=== PATIENT | female | born 1960 | race Caucasian/White ===

== ENCOUNTER → 2017-02-17 | Outpatient (CLI) | payer OTHER ==
[~2017-02-17] MED LIST: ALBUAER2 INH; AMPH10TA2 PO; EFIN1SOL TOP; FLUO0.05 TOP; LISI5TAB3 PO; MRP15 PO; MULT-506 PO; PANT40TA PO
== END | disposition home or self-care (01) ==
LOC: C.LABSPEC 16:38
PROVIDERS: ATTEND Dermatology
DX: B35.3 Tinea pedis (principal)

== ENCOUNTER 2024-08-15 08:31 | Inpatient (IN) ==
--- NOTE | 2024-08-10 11:57 | Anesthesiology Consultation ---
Date of Service August 10, 2024 Assessment & Plan (1) Encounter for pre-operative examination: Chart Review Chart Review: Acceptable Risk for Surgery History Surgery Operation Date: 08/15/24 12:55 Proposed Procedures p L3-L4 Decompression and Fusion Hardware Removal L4-L5 Spinal Cord Monitoring - Tylor Chen DO Height/Weight Height: 5 ft 3 in Weight: 81.193 kg Allergies Allergy/AdvReac Type Severity Reaction Status Date / Time adhesive Allergy Intermediate SKIN Verified 08/10/24 09:48 BLISTERS Penicillins Allergy Intermediate HIVES Verified 08/10/24 09:48 pain medication AdvReac Mild itching/not Uncoded 08/10/24 09:48 sure name of med Medications Home Medications Medication Instructions Recorded Confirmed Last Taken lisinopril 5 mg tablet 5 mg PO QAM 01/28/20 08/10/24 08/07/24 pantoprazole 40 mg tablet,delayed 40 mg PO QAM 01/28/20 08/10/24 08/06/24 release calcium-vitamin D3-vitamin K 500 1 tab PO QAM 04/20/23 08/10/24 08/06/24 mg-100 unit-40 mcg chewable tablet multivitamin 1 tab PO QAM 04/20/23 08/10/24 08/06/24 ascorbic acid (vitamin C) 500 mg 500 mg PO QAM 12/18/23 08/10/24 08/06/24 tablet (Vitamin C) evolocumab 140 mg/mL subcutaneous 140 mg subcut UD 12/18/23 08/10/24 1 Week Ago pen injector (Addis Love) ~07/31/24 pantoprazole 20 mg tablet,delayed 20 mg PO QAM 08/07/24 08/10/24 Unknown release zoledronic acid 5 mg/100 mL in 1 ea IV YEARLY 08/10/24 08/10/24 Unknown mannitol 5 %-water intravenous piggybck (Reclast) Past Medical History Medical History Degenerative disc disease Arthritis Prediabetes "borderline" Asthma "weather or sport induced" no inhaler Age related osteoporosis Hyperlipidemia Hiatal hernia abdominal hernia GERD (gastroesophageal reflux disease) History of anxiety History of Holter monitoring 2019, "when covid started pt developed fast heart rate, put on monitor, found to be anxiety." Hypertension followed by [place] [facility] History of COVID-19 03/2022, home test, not hosp; severe cough, sore throat, fever>resolved completely after 1 month. H/O abnormal cervical Papanicolaou smear [facility] records reviewed from [id number] - note made of "H/o abn pap" [id number] cotest neg/neg H/O actinic keratosis face Lumbar stenosis with neurogenic claudication (11/15/14) Past Family History Family History Mother Osteoporosis Lung cancer Father Lung cancer Grandmother Heart disease Grandmother (Paternal) Heart disease Other Kidney disease No family history of adverse response to anesthesia No pertinent family history Past Surgical History Surgical History History of hip surgery left/right History of lumbar fusion total 4 back surgeries (fused S1-S4) History of tooth extraction Nausea after anesthesia History of endoscopy History of dilatation and curettage History of bunionectomy of both great toes Hx of elbow surgery left Hx of hernia repair Hx of section x2 Hx of colonoscopy Hx of tonsillectomy H/O laparoscopy H/O shoulder surgery right/left Social History Smoking Status: Never smoker Do You Dip or Chew Tobacco: No Hx Alcohol Use: Yes alcohol intake frequency: holidays/special occasions only substance use type: does not use Testing Laboratory Results Laboratory Tests 08/07/24 09:49 Hgb 14.3 Plt Count 277 Potassium 4.3 Creatinine 0.81 Electrocardiogram Date: 06/28/24 Findings: + NSR @ (73) Echocardiogram Date: 05/23/20 EF: 60-65% LV Function: normal Valvular Disease: + no significant valvular disease
[~2024-08-15 08:31] MED LIST changes: -ALBUAER2 INH; -AMPH10TA2 PO; +DEXAMETHASONE SOD INJ 4 MG/ML VIAL ONE; -EFIN1SOL TOP; -FLUO0.05 TOP; +GLYCOPYRROLATE 0.2 MG/ML VIAL ONE; -LISI5TAB3 PO; +MIDAZOLAM HCL 1 MG/ML 2ML VIAL ONE; -MRP15 PO; -MULT-506 PO; +ONDANSETRON INJ 2 MG/ML 2 ML VIAL ONE; -PANT40TA PO; +PROPOFOL IV EMULSION 10 MG/ML 20 ML VIAL IV ONE; +ROCURONIUM BROMIDE 10 MG/ML 5 ML VIAL IV ONE; +SUGAMMADEX SODIUM 200 MG/2 ML VIAL IV ONE; +fentaNYL citrate PF 100 MCG/2 ML VIAL ONE
--- OUTSIDE RECORDS SUMMARY | 2024-08-15 09:03 | External Medical Summary | Summary of Care ---
Author Name Unknown Organization [facility] Address [address] [place] [address] Phone [phone] Care Team Providers Care Product Development Specialist Name Role Phone Cristiano Aden MD Primary Care Provider + Reason for Visit * Reason Onset Date Comments FYI 08/10/2024 Encounter Details Date Type Department Care Team (Late st Contact Info) Description 08/10/2024 Telephone Family Practice [facility] [address] [facility] [place] [address] Cristiano Aden MD [address] [facility] [place] [address] FYI Allergies Active Allergy Reactions Criticality Noted Date Comments Atorvastatin 09/27/2018 Myalgia Rosuvastatin 08/02/2020 myalgias Latex Other (Please comment) 09/22/2018 blistering documented as of this encounter (statuses as of 08/10/2024) Medications Medication Sig Dispensed Refills Start Date End Date Status MULTIVITAMIN/MULTIM INERAL TABS OR 1 TABLET DAILY 30 0 08/22/2004 Active FLONASE 50 MCG/ACT NA SUSPIndications:Chr onic sinusitis,Allergic rhinitis Two sprays each nostril once daily 1 Bottle 5 05/01/2014 Active Ascorbic Acid (VITAMIN C) 100 MG chewable tablet Take 3 Tablets by mouth in the morning. Active Cholecalciferol (VITAMIN D3) 10 MCG (400 UNIT) Capsule Take 2 Capsules by mouth in the morning. Active Caltrate 600+D3 Soft 600-800 MG-UNIT Oral Tablet Chewable (Calcium Carb-Cholecalcifero l) twice daily Active Pantoprazole Sodium 20 MG Oral Tablet Delayed Release (Protonix) Take 1 Tablet by mouth in the morning. 90 Tablet 3 03/31/2023 Active LORazepam 0.5 MG Oral Tablet (Ativan)Indications :OLGA LIDIA (generalized anxiety disorder) Take 1 Tablet by mouth every 8 hours as needed for Anxiety. 30 Tablet 08/13/2023 Active Repatha SureClick 140 MG/ML Subcutaneous Solution Auto-injector (evolocumab) Inject 140 mg (1 pen) under the skin every 14 days. Remove from refrigerator 30 minutes prior to injection. 2 mL 11 10/15/2023 Active Lisinopril 5 MG Oral Tablet (Prinivil)Indicatio ns:Essential hypertension with goal blood pressure less than 140/90 TAKE 1 TABLET BY MOUTH EVERY DAY 90 Tablet 05/16/2024 Active documented as of this encounter (statuses as of 08/10/2024) Active Problems Problem Noted Date Diagnosed Date History of 2019 novel coronavirus disease (COVID -19) 05/21/2022 Overview: March 2022 Age-related osteoporosis wit hout current pathological fracture 05/26/2021 OLGA LIDIA (generalized anxiety disorder) 11/02/2020 Attention deficit disorder (ADD) without hyperac tivity 07/26/2019 Eosinophilic esophagitis 09/24/2017 HTN, goal below 130/80 08/07/2016 Prediabetes 04/15/2016 Dyslipidemia 04/15/2016 Well adult exam 04/15/2016 Overview: Pronounced Sit-ti 10/21 PAYNE + reflux test. 06/19 PTH high [facility], normal calcium 06/18 EGD WNL, dilated. Biopsy reflux esophagitis.. Colon WNL fair prep minor 5y 2019 Zio +runs SVT 11/16 stress echo WNL. Gr I raymundo dys. 09/16 EGD WNL path pend. Try BID PPI 11/15 EGD-hiatal hernia. Improved. Dec to Qday PPI. Esophagitis present. 09/15 esophagitits, Hiatal hernia 07/2010 colonoscopy [facility]. Mild intermittent asthma without complication Overview: Per Asthma Taxonomy Gastroesophageal reflux disease with esophagitis 11/16/2008 Hiatal hernia documented as of this encounter (statuses as of 08/10/2024) Resolved Problems Problem Noted Date Diagnosed Date Resolved Date Acute sinusitis 05/31/2010 10/14/2011 Dermatophytosis of nail 04/05/200907/01 Disorder of skin or subcutaneous tissue 04/05/2009 07/26/2019 Menstruation, irregular 04/05/200907/01 Asthma, allergic 01/27/2008 05/27/2010 HTN, goal below 140/90 05/13/200707/27 HYPODERMIC NEEDLE 09/05/2005 08/17/2007 Contact with or exposure to other viral diseases(V01.79) 09/05/2005 08/17/2007 ADVANCE DIRECTIVE INFORMATION 05/06/2005 07/26/2019 Overview: No, Advance Directive brochure given to patient. Uterine endometriosis 2018 documented as of this encounter (statuses as of 08/10/2024) Immunizations Name Administration Dates Next Due COVID-19 mRNA, LNP-s, No Pre serve, 2-Dose Series (Pfizer) 09/09/2021,02/01/2021,01/06/2021 Pneumococcal Polysaccharide PPV23 (Pneumovax) 08/28/2011 Seasonal Influenza, PF, 6 M & above, IM , (FluLaval or Fluzone) 09/14/2023,10/06/2022,09/23/2021,09/21 Seasonal Influenza, Quadriva lent, No Preserve, IM 08/30/2020,08/07/2016,09/24/2015 Seasonal Influenza, Quadriva lent, No Preserve, Mdck 08/25/2019,09/21/2018 Seasonal Influenza, Trivalen t, (IIV3), with Preserv, (Fluzone) 10/03/2014,10/18/2013,08/16/2012,08/28,08/23/2009,09/26/2008 TDAP (age 10 and older)(Boostrix) 08/07/2016 TDAP, Age 7 and older, IM (Adacel) 02/17/2007 Zoster Vaccine Recombinant (Shingrix) 11/02/2020 ,07/23/2020 documented as of this encounter Social History Tobacco Use Types Packs/Day Years Used Date Smoking Tobacco: Never Smokeless Tobacco: Never Alcohol Use Standard Drinks/Week Comments Not Currently 0 (1 standard drink = 0.6 oz pure alcohol) extremely rare wine. due to reflux. PHQ-2 Answer Date Recorded PHQ Adult Total Score 0 05/22/2023 Hunger Vital Sign Answer Date Recorded Within the past 12 months, y ou worried that your food would run out before you got the money to buy more. Never true 05/22/20 23 Within the past 12 months, t he food you bought just didn't last and you didn't have money to get more. Never true 05/22/2023 Childcare Answer Date Recorded Do you feel overwhelmed with taking care of a child, family member or friend? No 05/22/2023 Does your family need help f inding childcare? (Household - for ages 0-17 years) Not on file 05/22/2023 Clothing Answer Date Recorded Have you been unable to get clothing when it was really needed? No 05/22/2023 Is your family able to get c lothes or diapers when needed? (Household - for ages 0-17 years) Not on file 05/22/2023 Personal Safety Answer Date Recorded Do you feel unsafe or have concerns for your saf ety? No 05/22/2023 Do you have concerns for you r family's safety? (Household - for ages 0-17 years) Not on file 05/22/2023 Utilities Answer Date Recorded Do you have trouble paying y our heating, water, or electric bill? No 05/22/2023 Is your family able to pay t he heat, water, or electric bill? (Household - for ages 0-17 years) Not on file 05/22/2023 Does your family have access to good internet? (Household - for ages 0-17 years) Not on file 05/22/2023 Employment Status Answer Date Recorded Are you unemployed or without regular income? No 05/22/2023 Does the household have a re gular source of income? (Household - for ages 0-17 years) Not on file 05/22/2023 Social Connections Answer Date Recorded How often do you feel lonely or isolated from th ose around you? Never 05/22/2023 Financial Resource Strain Answer Date R ecorded Do you have any trouble payi ng for your medications, or do you think you might in the future? No 05/22/2023 Does your family have troubl e paying for medicine? (Household - for ages 0-17 years) Not on file 05/22/2023 Transportation Needs Answer Date Record ed READ ONLY Do you have troubl e getting a ride to medical visits or work? Never True 05/22/2023 Does your family have a hard time getting a ride to doctors visits? (Household - for ages 0-17 years) Not on file 05/22/2023 Has lack of transportation k ept you from medical appointments, meetings, work, or from getting things needed for daily living? Check all that apply. (Adult - for ages 18 years and over) Not on file 05/22/2023 Do you (or your family) have trouble finding or paying for a ride (transportation)? (Household - for ages 0-17 years) Not on file 05/22/2023 Housing Stability Answer Date Recorded Do you currently live in a s helter or have no steady place to sleep at night? No 05/22/2023 READ ONLY Do you think you a re at risk of becoming homeless? No 05/22/2023 Does your family worry about paying for your home or becoming homeless? (Household - for ages 0-17 years) Not on file 0 05/22/2023 Are you homeless or worried that you might be in the future? (Adult - for ages 18 years and over) Not on file Are you (or your family) tramaine eless or worried that you might be in the future? (Household - for ages 0-17 years) Not on file Food Insecurity Answer Date Recorded Do you need food for this week? No 05/22/2023 Are you able to get enough f ood for your family? (Household - for ages 0-17 years) Not on file 05/22/2023 Does your family need food t his week? (Household - for ages 0-17 years) Not on file 05/22/2023 Do you always have enough fo od for your family? (Household - for ages 0-17 years) Not on file 05/22/2023 Sex and Gender Information Value Date Recorded Sex Assigned at Female 05/22/2023 9:16 AM EDT Gender Identity Female 05/22/2023 9:16 AM EDT Sexual Orientation Straight 05/22/2023 9: 16 AM EDT Job Start Date Occupation Industry Not on file Not on file Not on file documented as of this encounter Miscellaneous Notes * Telephone Encounter - Mikki Steve product sales engineer - 08/10/2024 2:56 PM EDT Patient calling request to speak to nurse regarding back surgery. Transferred to [facility] at office Thank you, Mikki Steve [employer] [facility] 08/10/2024,2:59 PM documented in this encounter Plan of Treatment Upcoming Encounters Date Type Department Care Team (Late st Contact Info) Description 11/21/2024 10:00 AM EST [address] [address] 12/12/2024 9:00 AM EST Imaging Radiology [facility] [address] [place] [address] 05/26/2025 9:40 AM EDT Office Visit Family [facility] [address] [place] [address] Cristiano Aden MD [address] [place] [address] Scheduled Procedures Name Priority Associated Diagnoses Date/Ti me COLONOSCOPY FLEXIBLE PROXIMA L DIAGNOSTIC Recall Encounter for screening colonoscopy Health Maintenance Due Date Last Done Comments HPV/Co-Test 1990 Cologuard 2005 Fecal Occult Blood Test 2005 Sigmoidoscopy 2005 Hepatitis B Vaccine (3 of 3 - 19+ 3-dose series) 03/05/2006 10/07/2005, 09/04/2005 Pneumococcal Vaccine: Pediatrics (0 to 5 Years) and At-Risk Patients (6 to 64 Years) (2 of 2 - PCV) 08/28/2012 08/28/2011 *SPIROMETRY ONCE FOR ASTHMA-ADULT 10/23/2022 Depression Screening 05/22/2024 05/22/2023 COVID-19 Vaccine (4 - 2022- season) 2024 09/09/2021, 02/01/2021, 01/06/2021 Influenza Vaccine (FLU shot) (#1) 2024 09/14/2023, 10/06/2022, 09/23/2021, Additional history exists DXA Scan 11/17/2024 11/17/2022, 10/30, 09/03/2015 Mammogram 12/09/2024 12/09/2023, 03/2023, 12/02/2021, Additional history exists GFR 05/05/2025 05/05/2024, 10/01, 05/18/2023, Additional history exists HbA1c 05/19/2025 05/19/2024, 04/30, 07/03/2022, Additional history exists Cervical Cancer Screening 06/17/2025 Pap Smear 06/17/2025 06/17/2022, 05/01, 01/12/2019, Additional history exists Colonoscopy 06/18/2025 06/18/2020, 05/31, 08/23/2010 Colorectal Cancer Screening 06/18/2025 Albumin/Creatinine Ratio 05/18/2026 05/18/2023 DTap/Tdap Vaccines (3 - Td or Tdap) 08/07/2026 08/07/2016, 02/17/2007 Lipid Panel 09/18/2028 09/18/2023, 04/30, 07/10/2022, Additional history exists RETIRED - COLONOSCOPY-EVERY 5 YRS AGES 18-100 Discontinued 06/18/2020, 06/18/2020, 08/23/2010 Zoster Vaccines Completed 11/02/2020, 07/23/2020 VITAMIN D LEVEL ONCE IN A LIFETIME-USE SMARTSET# [id number] Completed 05/05/2024, 07/14/2011 HPV (Gardasil) Vaccine Aged Out No lo nger eligible based on patient's age to complete this topic MENINGOCOCCAL (MENACTRA/MENVEO) Aged Out No longer eligible based on patient's age to complete this topic documented as of this encounter Medical Devices Not on filedocumented as of this encounter Care Teams Product Development Specialist Relationship Specialty Start Date End Date Cristiano Aden MD [address] [place] [id number] PCP - General Family Medicine 04/15/16 documented as of this encounter
[2024-08-15] MEDS: LR 15ML/HR IV SCH (09:12)
[2024-08-15] MEDS: LR 60ML/HR IV SCH (09:13)
[2024-08-15] MEDS: GABAPENTIN 600 MG DOSE PO SCH (09:16)
[2024-08-15] MEDS: ACETAMINOPHEN 500 MG TAB PO SCH (09:16)
[2024-08-15] MEDS: CeleBREX 200 MG CAP PO SCH (09:17)
--- NOTE | 2024-08-15 09:44 | History & Physical Bridge Note ---
Date of Service August 15, 2024 History & Physical Bridge Note I have examined the patient, reviewed the History & Physical and in the interval since the performance of the History & Physical I have noted the following changes of clinical significance: no changes noted
--- NOTE | 2024-08-15 09:45 | History & Physical Report ---
Date of Service August 15, 2024 Assessment & Plan (1) Neurogenic claudication due to lumbar spinal stenosis: Plan: Lumbar decompression and fusion L3-L4 with hardware removal L4-L5 History of Present Illness Chief Complaint: Back and bilateral leg pain Primary Care Provider: Cristiano Aden MD This is a 64-year-old female presents with chronic persistent back and leg pain after failing course of nonoperative care is here for surgical intervention. Allergies Allergy/AdvReac Type Severity Reaction Status Date / Time adhesive Allergy Intermediate SKIN Verified 08/15/24 08:50 BLISTERS Penicillins Allergy Intermediate HIVES Verified 08/15/24 08:50 pain medication AdvReac Mild itching/not Uncoded 08/15/24 08:50 sure name of med Home Medications Medication Instructions Recorded Confirmed Type lisinopril 5 mg tablet 5 mg PO QAM 01/28/20 08/15/24 History pantoprazole 40 mg tablet,delayed 40 mg PO QAM 01/28/20 08/15/24 History release calcium-vitamin D3-vitamin K 500 1 tab PO QAM 04/20/23 08/15/24 History mg-100 unit-40 mcg chewable tablet multivitamin 1 tab PO QAM 04/20/23 08/15/24 History ascorbic acid (vitamin C) 500 mg 500 mg PO QAM 12/18/23 08/15/24 History tablet (Vitamin C) evolocumab 140 mg/mL subcutaneous 140 mg subcut UD 12/18/23 08/15/24 History pen injector (Repatha SureClick) pantoprazole 20 mg tablet,delayed 20 mg PO QAM 08/07/24 08/15/24 History release zoledronic acid 5 mg/100 mL in 1 ea IV YEARLY 08/10/24 08/15/24 History mannitol 5 %-water intravenous piggybck (Reclast) acetaminophen 500 mg tablet 1,000 mg PO Q6H PRN Pain 08/15/24 08/15/24 History Past Med/Surg History Problem List (Updated 08/15/24 @ 09:44 by Tylor Chen DO) Neurogenic claudication due to lumbar spinal stenosis Lumbar radiculopathy (Acute) Bilateral plantar fasciitis Atherogenic dyslipidemia Benign essential hypertension Atypical chest pain History of bursectomy Tear of gluteus minimus tendon Osteoarthritis of left hip Prediabetes Atypical nevus (Acute) pt denies Medical History Degenerative disc disease Arthritis Prediabetes "borderline" Asthma "weather or sport induced" no inhaler Age related osteoporosis Hyperlipidemia Hiatal hernia abdominal hernia GERD (gastroesophageal reflux disease) History of anxiety History of Holter monitoring 2019, "when covid started pt developed fast heart rate, put on monitor, found to be anxiety." Hypertension followed by [place] [facility] History of COVID-19 03/2022, home test, not hosp; severe cough, sore throat, fever>resolved completely after 1 month. H/O abnormal cervical Papanicolaou smear [facility] records reviewed from [id number] - note made of "H/o abn pap" [id number] cotest neg/neg H/O actinic keratosis face Lumbar stenosis with neurogenic claudication (11/15/14) Surgical History History of hip surgery left/right History of lumbar fusion total 4 back surgeries (fused S1-S4) History of tooth extraction Nausea after anesthesia History of endoscopy History of dilatation and curettage History of bunionectomy of both great toes Hx of elbow surgery left Hx of hernia repair Hx of section x2 Hx of colonoscopy Hx of tonsillectomy H/O laparoscopy H/O shoulder surgery right/left Family History Mother Osteoporosis Lung cancer Father Lung cancer Grandmother Heart disease Grandmother (Paternal) Heart disease Other Kidney disease No family history of adverse response to anesthesia No pertinent family history Social History Smoking Status: Never smoker Second Hand Exposure: Yes (as a child); Do You Dip or Chew Tobacco: No; Hx Alcohol Use: Yes Preferred Language: Nepali Communication Ability: Effective Water Hydrant Installer Required: No Beliefs That Will Affect Care: None marital status: Current Living Situation: Spouse current occupational status: employed current occupation: [employer] Feels Safe at Home: Yes Safety Concerns: Feels Safe At This Time Diet Comment: reg diet during the past year weight has: remained stable Physical Activity Frequency: Daily Physical Activity Frequency Comment: walks kaur retriever Assistive Devices: Cane, Contacts and Glasses Physical Exam Physical Exam: Patient is alert and oriented Heart regular in rhythm Lungs clear Results & Data Results & Data Vital Signs (Past 12 Hours) Vital Signs Temp Pulse Resp BP Pulse Ox O2 Del Method 08/15/24 08:54 36.7 C 65 18 161/82 H 99 Room Air
[2024-08-15] MEDS ORDERED: ATROPINE SULFATE 0.1 MG/ML 10ML SYR IV PRN (09:51)
[2024-08-15] MEDS ORDERED: ePHEDrine sulfate 50 MG/ML AMP IV PRN (09:51)
[2024-08-15] MEDS ORDERED: ONDANSETRON INJ 2 MG/ML 2 ML VIAL IV PRN ×2 (09:51→14:14)
[2024-08-15] MEDS: ceFAZolin 2000MG 2,000 MG/15 ML SYR IV SCH ×2 (10:12→18:05)
[2024-08-15] MEDS: BUPIVACAINE/EPINEPHRINE 0.25% 1:200,000 30 ML VIAL ONE (10:59)
[2024-08-15] MEDS: ceFAZolin 330 MG/ML 1 GM VIAL ONE (11:56)
[2024-08-15] MEDS: FLOSEAL HEMOSTATIC MATRIX 10ML TOP ONE (11:56)
--- NOTE | 2024-08-15 12:09 | Operative Report ---
Post Operative Report Pre & Post Diagnosis Operation Date: 08/15/24 10:05 Pre-Op Diagnosis: #1 lumbar spinal stenosis with neurogenic claudication #2 synovial facet cyst #3 spondylolisthesis L3-L4 Post-Op Diagnosis: Same I identified the patient and participated in the time-out.: Yes Procedure Operation Date: 08/15/24 10:05 Actual Procedures #1 removal of posterior instrumentation L4-L5. #2 exploration of fusion L4-5 #3 lumbar decompression with bilateral medial facetectomies and foraminotomies L3- L4 per #4 excision of extradural mass at L3-L4. #5 posterior spinal fusion L3- L4. #6 posterior spinal fusion L3-L4. #7 interbody fusion L3-L4. #8 placement of Spira 11 x 26 mm to L3-L4. #9 placement infuse collagen sponge combined with Koros in the posterior lateral gutters and os design in the interbody space. #10 versa wrap placed over the exposed dura. Surgeon Tylor Chen, Braid Folder Mary Pollack Estimated Blood Loss 250 Findings Consistent with Post-Op Diagnosis Specimens None Indications This is a 64-year-old female presents publish diagnosis of failed course of nonoperative care she is here for surgical invention. Description of Procedure Patient was met with identified informed consent obtained. Patient was then taken to the operative suite underwent ablation placed in a prone position on the Miguel table top of the Gómez frame. All bony promises well-padded eyes inspected to ensure no external pressure placed upon them. This point lumbar s pine was prepped and draped in a sterile fashion. Sharp dissection with the assistance of Bovie cautery performed down to and exposing the lamina transverse processes of L3-L4 and the instrumentation at L4-5. I then proceeded to move the hardware bilaterally explored the fusion mass noting it to be mature and intact. Informed complete laminectomy of L3 including bilateral medial facetectomies and foraminotomies addressing severe spinal stenosis as well as excision of the facet cyst on the left with direct adherence to the dura. Pedicle screws then placed L3-L4 bilaterally with assistance of fluoroscopy and the properly sized colin placed. By way of transforaminal approach on the right a complete discectomy of L3-L4 was performed endplates grade 2 subcortical bleeding bone and 11 x 26 mm Spira cage filled with os designed tapped into position. The rods were then compressed locked in final position bilaterally. Transverse processes of L3 and L4 burred to subcortical bleeding bone. Infuse collagen sponge combined with Koros placed in the posterior gutters. Versa wrap placed over the exposed dura. 15 round FANY drain inserted. The incision was then closed with 1 Vicryl to fascia 2-0 Vicryl subcutaneously and 4 Monocryl for final skin closure. Steri-Strips sterile dressing placed. Patient waken taken the PACU stable condition. Please note spinal cord monitoring was utilized at the procedure no changes noted. Mary Pollack was present throughout the entire surgery involved the patient positioning complex portions of the surgery and final skin closure. Im ordering 20 grams of Triple [place] Collagen Powder ([email or web address] [id number]) to treat an incision wound that was caused by a spine procedure. The incision is approximately 2 cm(W) x 4 cm(L) into the joint (D) in size and is a full thickness wound. Triple [place] collagen comes in 1 gram packets so 20 packets were ordered. Given the size of the wound, with light to moderate exudate I chose to order a 20 day supply. The patient will be provided instructions for proper application of the collagen wound kit. The patient will be asked to apply the collagen powder daily and then cover it with sterile dressings dispensed. Collagen was selected as I expect the collagen to attract monocytes and fibroblasts, act as a sacrificial substrate for MMPs, and ultimately proved a matrix for tissue and vessel growth. The collagen will act as a primary dressing in this scenario. It is medically necessary for proper healing of these wounds to improve bioavailability and contact with each wound surface, this is also to help prevent infection of wounds and promote healing ultimately leading to a better healing outcome and limit the risk of infection. I attest to the content of the Intraoperative Record and any orders documented therein. Any exceptions are noted below.
[2024-08-15] MEDS: fentaNYL citrate PF 100 MCG/2 ML VIAL IV PRN (12:30)
--- NOTE | 2024-08-15 12:42 | Fluoroscopy Report ---
FL lumbar spine 2-3V CLINICAL HISTORY: L3-4 DECOMP AND FUSION COMPARISON STUDY: Lumbar spine MRI August 07, 2024. FLUOROSCOPY TIME: 13 seconds. Ka, r: 12.33 mGy FLUOROSCOPIC IMAGES: 2 FINDINGS: Fluoroscopy was provided during removal of the L4-L5 hardware. Interbody spacer remains in place. Interval L3-L4 decompression and fusion with interbody spacer is noted. IMPRESSION: Fluoroscopy provided during hardware removal and interval L3-L4 decompression and fusion . ACT 112: Negative or not required by law. Electronically signed by: Attila Vickers M.D. 08/15/2024 12:41 PM
[2024-08-15] MEDS ORDERED: HYDROmorphone INJ 2 MG/ML SYR/VIAL IV PRN (13:00)
[2024-08-15] MEDS: HYDROmorphone INJ 1 MG/ML SYRINGE ONE (13:04)
--- NOTE | 2024-08-15 13:30 | Anesthesiology Progress Note ---
Date of Service August 15, 2024 Anesthesia Post Procedure Vital Signs Vital Signs: Temp Pulse Pulse Resp BP Pulse Ox O2 Del Method 08/15/24 13:10 97.3 F L 88 14 176/77 H 93 Oxymask 08/15/24 13:00 97.3 F L 64 13 175/70 H 99 Oxymask 08/15/24 12:50 76 17 161/73 H 100 Oxymask 08/15/24 12:40 77 10 L 150/58 H 100 Oxymask 08/15/24 12:30 65 13 157/60 H 100 Oxymask 08/15/24 12:22 96.8 F L 97 H 14 195/110 H 95 Oxymask 08/15/24 08:54 98.1 F 65 18 161/82 H 99 Room Air O2 Flow Rate 08/15/24 13:10 3 08/15/24 13:00 3 08/15/24 12:50 3 08/15/24 12:40 3 08/15/24 12:30 3 08/15/24 12:22 5 08/15/24 08:54 Pain Intensity Back: Pain Intensity: 7 Transfer of Care Handoff Completed per policy Notes Mental Status: alert / awake / arousable and participated in evaluation Patient Amnestic to Procedure: Yes Nausea / Vomiting: adequately controlled Pain: adequately controlled Airway Patency, RR, SpO2: stable & adequate BP & HR: stable & adequate Hydration State: stable & adequate Anesthetic Complications: no major complications apparent and Pt Satisfied with anesthetic care
[2024-08-15] MEDS ORDERED: diphenhydrAMINE Capsule 25 MG CAP PO PRN (14:14)
[2024-08-15] MEDS ORDERED: METOCLOPRAMIDE HCL INJ 5 MG/ML 2 ML VIAL IV PRN (14:14)
[2024-08-15] MEDS ORDERED: bisacodyL 10 MG SUPP PR PRN (14:14)
[2024-08-15] MEDS ORDERED: ALUMINUM/MAGNESIUM SUSP 30 ML UDC PO PRN (14:14)
[2024-08-15] MEDS ORDERED: MAGNESIUM HYDROXIDE SUSP 30 ML UDC PO PRN (14:14)
[2024-08-15] MEDS ORDERED: ACETAMINOPHEN 1,000 MG/100 ML VIAL IV PRN (14:14)
[2024-08-15] MEDS ORDERED: FAMOTIDINE 20 MG TAB PO PRN (14:14)
[2024-08-15] MEDS ORDERED: PROMETHAZINE 12.5 MG/50.5 ML BAG IV PRN (14:14)
[2024-08-15] MEDS ORDERED: DO NOT ADMINISTER FLU VACCINE PRN (14:14)
[2024-08-15] MEDS ORDERED: HYDROmorphone INJ 0.5 MG/0.5 ML SYR IV PRN (14:14)
[2024-08-15] MEDS ORDERED: NALOXONE HCL 0.4 MG/1 ML VIAL/CARP IV PRN (14:14)
[2024-08-15] MEDS ORDERED: ONDANSETRON 4 MG OD TAB PO PRN (14:14)
[2024-08-15] MEDS ORDERED: oxyCODONE HCL IR 5 MG TAB (IMMEDIATE RELEASE) PO PRN (14:14)
[2024-08-15] MEDS ORDERED: LORazepam 2 MG/1 ML VIAL IV PRN (14:14)
[2024-08-15] MEDS ORDERED: SOD PHOSPHATE/SOD BIPHOSPHATE ENEMA 132 ML BTL PR PRN (14:14)
[2024-08-15] MEDS ORDERED: DO NOT ADMINISTER PNEUMOCOCCAL VACCINE PRN (14:14)
[2024-08-15] MEDS ORDERED: HYDROmorphone INJ 1 MG/ML SYRINGE IV PRN (14:14)
[2024-08-15] MEDS ORDERED: hydrOXYzine HCl 25 MG TAB PO PRN (14:14)
[2024-08-15] MEDS: LACTATED RINGER'S 1,000 ML IV SCH (14:31)
[2024-08-15] MEDS: traMADol HCL 50 MG TABLET PO PRN (18:12)
[2024-08-15] MEDS: DOCUSATE SODIUM/SENNA 50/8.6MG TAB PO SCH (20:50)
[2024-08-16] MEDS: LORazepam 0.5 MG TAB PO PRN (00:19)
[2024-08-16] MEDS: POLYETHYLENE (MIRALAX) 17 GM PACK PO SCH (05:26)
[2024-08-16] MEDS: ACETAMINOPHEN 500 MG TAB PO PRN (05:26)
[2024-08-16 06:20] LABS: Basophils # (auto) 0.01 K/uL (0.00-0.20); Basophils % (auto) 0.1 %; Hematocrit (blood only) 34.1 % (37.0-47.0); Hemoglobin 11.1 g/dl (12.0-16.0); Immature Granulocytes # (auto) 0.07 K/uL (0.01-0.20); Immature Granulocytes % (auto) 0.4 %; Lymphocytes # (auto) 1.86 K/uL (1.20-3.40); Mean Corpuscular Hemoglobin 27.1 pg (25.0-34.0); Mean Corpuscular Hgb Conc 32.6 g/dL (32.0-36.0); Mean Corpuscular Volume 83.4 fL (80.0-100.0); Mean Platelet Volume 9.6 fL (9.4-12.4); Monocytes # (auto) 0.99 K/uL (0.11-0.59); Monocytes % (auto) 5.9 %; Neutrophils # (auto) 13.99 K/uL (1.40-6.50); Neutrophils % (auto) 82.6 %; Platelet Count 256 K/uL (130-400); RDW Coefficient of Variation 13.9 % (11.5-14.5); RDW Standard Deviation 42.5 fL (36.4-46.3); Red Blood Count 4.09 M/uL (4.20-5.40); White Blood Count 16.92 K/ul (4.8-10.8)
[2024-08-16 06:31] LABS: BUN Creatinine Ratio 20.3 (10-20); Creatinine Clr Calc Pharmacy 90.2 ml/min; Est GFR (African American) 109.3 ml/min; Est GFR (Non-African American) 94.3 ml/min
[2024-08-16] MEDS: PANTOprazole 40 MG TAB PO SCH (08:45)
[2024-08-16] MEDS: CALCIUM 600MG + VIT D 400 IU TAB PO SCH (08:45)
[2024-08-16] MEDS: dexAMETHasone 6 MG in SYRINGE 0 ML IV SCH (08:45)
[2024-08-16] MEDS: MULTIVITAMIN TAB PO SCH (08:48)
[2024-08-16] MEDS: ASCORBIC ACID 500 MG TAB PO SCH (08:51)
[2024-08-16] MEDS: lisinopril 5 MG TAB PO SCH (08:51)
[2024-08-16] MEDS ORDERED: PANTOprazole 40 MG TAB PO SCH (09:00)
--- NOTE | 2024-08-16 10:50 | Orthopedic Progress Note ---
Date of Service August 16, 2024 Assessment & Plan (1) Neurogenic claudication due to lumbar spinal stenosis: Plan: This time we will continue physical therapy monitor FANY operatively discharge home next few days. Admission and Anticipated Discharge Date Admission Date: August 15, 2024 Subjective Patient's back pain is controlled leg symptoms markedly improved Physical Exam Physical Exam: Patient is in bed at this time. She is comfortable. Extra strength testing. Results & Data Vital Signs (Past 12 Hours) Vital Signs Temp Pulse Pulse Resp BP Pulse Ox O2 Del Method 08/16/24 08:45 121/72 08/16/24 07:35 36.3 C L 75 18 115/58 L 96 Room Air 08/16/24 03:18 36.4 C L 70 18 125/72 96 Room Air 08/15/24 22:59 36.4 C L 65 16 136/75 94 Room Air
[2024-08-16 20:37] VITALS: RESP 16
[2024-08-17 07:19] VITALS: BP 114/72; TEMP 97.7; O2SAT 95
--- NOTE | 2024-08-17 10:36 | Discharge Summary ---
Date of Service August 17, 2024 Admission HPI Per Admitting Provider This is a 64-year-old female presents with chronic persistent back and leg pain after failing course of nonoperative care is here for surgical intervention. Principal Diagnosis Lumbar spinal stenosis with neurogenic claudication Discharge Data Allergies Allergy/AdvReac Type Severity Reaction Status Date / Time adhesive Allergy Intermediate SKIN Verified 08/15/24 08:50 BLISTERS Penicillins Allergy Intermediate HIVES Verified 08/15/24 08:50 pain medication AdvReac Mild itching/not Uncoded 08/15/24 08:50 sure name of med Procedures Performed Operation Date: 08/15/24 10:05 Actual Procedures p L3-L4 Decompression and Fusion Spinal Cord Monitoring(Not Applicable) - Tylor Chen DO s Hardware Removal L4-L5 (Not Applicable) - Tylor Chen DO Ordered Studies 08/15/24 10:05 [place] lumbar spine 2-3V Routine Hospital Course (1) Neurogenic claudication due to lumbar spinal stenosis: Patient went lumbar decompression fusion tolerated as well as taken to orthopedic for postoperative. Postoperative she progressed appropriate. Marked improvement of her back and leg symptoms. FANY drain decreasing. Good strength testing. Pain controlled. Subsidy discharged home. Discharge orders and instructions from the chart for further review. Total Time Total Time Spent Total Time Spent (In Minutes): 20 minutes Discharge Plan Discharge Items Patient Disposition: Home - Self-Care Reason For Visit: Lumbar Radiculopathy, Synovial Cyst Lumbar Facet Discharge Diagnosis: Lumbar spinal stenosis with neurogenic claudication Activity: As commented below Non-emergency contact: Primary Care Provider Call non-emergency contact if: you have any medication questions Follow-up/Referrals: Cristiano Aden MD [Primary Care Provider] - Diet: Regular Addtl Attending Provider Instructions: ACTIVITY RECOMMENDATIONS: SELF CARE INSTRUCTIONS AFTER THORACIC/LUMBAR FUSIONS 1. You may walk to your tolerance. It is good exercise for your legs and back. Expect some back and intermittent leg aches and pains. 2. You may perform "counter-top" level activities (make a sandwich, edyta with a project, etc.). 3. No bending or lifting of more than 10 pounds or back twisting of any nature (roll like a log when turning in bed). 4. You may ride in a car for 20-30 minutes at a time. No driving until after your first visit with your doctor. 5. Frequent changes of position and restricting sitting to 30 minutes at a time will help limit the amount of back spasms and stiffness you may experience. 6. You may discontinue the use of ambulatory aids (cane, crutches, etc.) once your strength and confidence allow. 7. You may dredging inspector the shower and let water strike your incision when you arrive home at least once daily. Do not take a tub bath, sit in a hot tub or go into a swimming pool until after your first recheck in the office. SPECIAL CARE INSTRUCTIONS: VERY IMPORTANT TO READ AND REVIEW A. Your surgical incision has been closed with a cosmetic suture under the skin that will dissolve in about 6 weeks. In 14 days, you can use a pair of clean scissors and cut the suture that is left outside of the skin at the ends of your incision. 1. The small skin tapes can be removed 7 days after surgery if they have not fallen off by that point. 2. You may keep the wound open to air as much as possible to promote healing after post-op day number 5 unless told otherwise by your doctor. 3. If you think the wound looks like it is becoming infected (redness or worsening drainage) and/or you are experiencing fever, chill or worsening back pain and muscle spasms, contact the office so that we may evaluate you as soon as possible. B. Complications are uncommon, but please contact us if you have any signs or symptoms of: 1. wound infection (fever higher than 102.5 degrees F, redness, separation of wound, drainage, or increasing pain from the incision) 2. blood clots in legs (pain, swelling, redness and warmth in legs) 3. urinary tract infection (fever higher than 102.5 degrees F, burning upon urination or increased frequency of urination) 4. nerve problems (inability to walk on your toes or heels, numbness, loss of bowel or bladder control) 5. any other symptoms that concern you C. Please call the office at if you have any concerns or questions about your operation or recovery. D. No smoking! Smoking drastically decreases the chance of a solid fusion. E. Do not take any anti-inflammatory medications (Indocin, Advil, Motrin, Aspirin, Naprosyn, etc.) as these may inhibit the chance of a solid fusion. Tylenol is okay to take for pain. MANAGING PAIN AFTER SPINAL SURGERY 1. Narcotic medication is intended for short-term use and will be provided for surgical pain. Surgical pain usually lasts for a period of 4-6 weeks. Narcotic medication includes Percocet, Vicodin, Darvocet, Tylenol #3 or Lortab. 2. Longer-term pain is more appropriately treated with non-narcotic medication such as Tylenol ES. 3. Muscle spasm is not appropriately treated with narcotics. Muscle relaxers such as Soma, Flexeril or Skelaxin can be used along with Tylenol ES. 4. Remember that we all live with some "aches and pains". This is not unusual or uncommon after an injury or as we get older. a. Back pain is expected and may include muscle spasms for 4 to 6 weeks after surgery. The pain should gradually improve. If the pain worsens for no apparent reason, please contact the office. b. Intermittent leg pain may also be experienced and should not be concerned about unless it worsens for no apparent reason. If so, please contact the office. 5. We will provide appropriate medication within the normal guidelines of their prescribed use. We will also be very cautious and aware of potential abuse and extended duration of patients' medication needs. a. Pain medications are for your comfort and to assist with sleep and rest so that the tissue can heal. They are not provided in order to return to normal activity and should not be used through the day. To do so or worsening pain at night can result from ongoing tissue damage and development of tolerance to the prescribed medicine. 6. Please allow 2-3 days to process refills. Prescriptions will not be mailed but must be picked up at the office. FOLLOW UP VISIT: Keep your scheduled follow-up appointment. Any questions, please call the office at . Pending Studies at Discharge: No Stand-Alone Forms: [employer], Smoking Cessation Medications and DC Order Prescriptions: New tramadol 50 mg tablet 50 mg PO Q6H PRN (Reason: pain, moderate) Qty: 30 0RF oxycodone 5 mg tablet 5 mg PO Q6H PRN (Reason: pain) Qty: 30 0RF Continued pantoprazole 40 mg tablet,delayed release (DR/EC) 40 mg PO QAM Rx Instructions: Pt has a 40mg and 20mg tablet and will alternate depending on how intense her symptoms are. lisinopril 5 mg tablet 5 mg PO QAM multivitamin Tablet 1 tab PO QAM calcium-vitamin D3-vitamin K 500-100-40 mg-unit-mcg Tablet,Chewable 1 tab PO QAM ascorbic acid (vitamin C) [Vitamin C] 500 mg Tablet 500 mg PO QAM Patient Comments: rosss, otc Repatha SureClick 140 mg/mL Pen Injector 140 mg SUBCUT UD Patient Comments: due dec 24 Rx Instructions: q 14 days pantoprazole 20 mg tablet,delayed release (DR/EC) 20 mg PO QAM Rx Instructions: Pt has a 40mg and 20mg tablet and will alternate depending on how intense her symptoms are. zoledronic iakz-gkgzlenm-nltsy [Reclast] 5 mg/100 mL Piggyback 1 ea IV YEARLY Patient Comments: given 04/2024 acetaminophen [Tylenol Ex Str Arthritis Pain] 500 mg Tablet 1,000 mg PO Q6H PRN (Reason: Pain) Discharge Orders: Discharge Order (Routine); Ordered 08/17/24 Ordered By: Tylor Chen Admission Data Admit Date/Time: 08/15/24 12:22 Attending Provider: Tylor Chen Admit Provider: Tylor Chen Primary Care Provider: Cristiano Aden
[2024-08-17 13:46] VITALS: PULSE 70
== END 2024-08-17 14:21 | disposition home or self-care (01) | DRG 455 ==
LOC: ASU 08:31 → 3E 12:22
DX: Z88.0 Allergy status to penicillin; K21.9 Gastro-esophageal reflux disease without esophagitis; Z79.899 Other long term (current) drug therapy; R73.03 Prediabetes; Z91.048 Other nonmedicinal substance allergy status; I10 Essential (primary) hypertension; M48.062 Spinal stenosis, lumbar region with neurogenic claudication